=== PATIENT | female | born 1985 | race African-American/Black ===

== ENCOUNTER 2018-04-04 21:32 | Emergency (ER) | payer OTHER, BC ==
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
== END 2018-04-05 01:16 | disposition home or self-care (01) ==
LOC: JD.ED 21:32
DX: R19.7 Diarrhea, unspecified (principal)
CPT/HCPCS: 87046; 87425; 87427; 87493; 87798; 89055; 99284

== ENCOUNTER 2019-01-07 09:45 | Emergency (ER) | payer OTHER, BC ==
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
--- NOTE | 2019-01-07 10:52 | CT ---
CT cervical spine Technique: Multiple axial sections were obtained from above C1 inferiorly to the bottom of T1. Reconstructed sagittal and coronal images were reviewed. Findings: Extra bony density is seen off the inferior aspect of the anterior arch of C1 which appears old and is felt to be incidental. Minimal degenerative change is noted between the dens and anterior arch of C1. Vertebral body heights and disc spaces are maintained. Minimal calcification is noted anterior to the disc at C5-6 which is felt to represent slight soft tissue calcification which is incidental. Vertebral bodies and posterior arches are intact. No fracture is seen. No bony central lower bony neural foraminal stenosis is seen. No abnormal subluxation is seen on the reconstructed sagittal images. Impression: 1. Incidental findings. Nothing acute is seen on CT study of the cervical spine. Diagnostic code #2
--- NOTE | 2019-01-07 11:33 | CR ---
Right knee: AP, lateral and sunrise patellar views of the right knee were obtained. Comparison: No previous knee exam. Medial and lateral joint compartments are maintained in height. No joint effusion is seen. Patellofemoral joint appears within normal limits. No subluxation or fracture is seen. Impression: 1. No abnormality is seen on right knee exam. Diagnostic code #1
== END 2019-01-07 11:20 | disposition home or self-care (01) ==
LOC: SUPCPDRO 09:45 → JD.ED 09:45
DX: S13.9XXA Sprain of joints and ligaments of unspecified parts of neck, initial encounter (principal); S80.01XA Contusion of right knee, initial encounter; Z79.899 Other long term (current) drug therapy; V89.2XXA Person injured in unspecified motor-vehicle accident, traffic, initial encounter
CPT/HCPCS: 72125; 72125-26; 73562-26-RT; 73562-RT; 99283; 99284-25

== ENCOUNTER 2019-02-13 15:56 | Emergency (ER) | payer BC, OTHER ==
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
--- NOTE | 2019-02-13 17:46 | US ---
First trimester obstetrical ultrasound: Multiple real-time images were obtained transvaginally. Comparison: No prior study for current . Very minimal cystic area is noted within the endometrial cavity. This measures 3 mm. Incidental nabothian cysts are seen. Ovaries appear within normal limits. Small amount of free fluid is noted within the pelvis believed to be incidental. Impression: 1. Very minimal cystic area within the endometrial cavity. Uncertain if this represents pseudo-gestational sac or represents a very early gestational sac which is small to date. Recommend repeat study in 14 days to further evaluate. 2. Other incidental findings as noted above. Diagnostic code #2
== END 2019-02-13 19:07 | disposition home or self-care (01) ==
LOC: JD.ED 15:56 → SUPCPDRO 15:56 → JD.ED 19:07
DX: O20.0 Threatened abortion (principal); Z3A.01 Less than 8 weeks gestation of pregnancy; Z79.899 Other long term (current) drug therapy
CPT/HCPCS: 36415; 76817; 76817-26; 81001; 81025; 84702; 85007; 85027; 86850; 86900; 86901; 99284-25

== ENCOUNTER 2020-01-25 02:54 | Emergency (ER) | payer BC ==
--- NOTE | 2020-01-25 05:44 | EDM.PDOC ---
ED HPI GENERAL MEDICAL PROBLEM - General Chief Complaint: Respiratory Problem Stated Complaint: ATHSMA ATTACK Time Seen by Provider: 01/25/20 05:24 Source of Information: Reports: Patient History Limitations: Reports: No Limitations - History of Present Illness INITIAL COMMENTS - FREE TEXT/NARRATIVE: Mrs. Tyler is a very pleasant 34-year-old woman with no chronic medical issues, who states that she is been experiencing a hot sensation in her central chest for the past 3 days. She feels short of breath. No recent wheezing. She also states that her tongue has been tingling for the past 3 days, and when she walks , it feels like she is walking on rubber legs. No prior similar symptoms. No recent fever, nausea, vomiting, constipation, diarrhea, or urinary symptoms. The patient states that she has had abdominal pain on and off for years. The patient states that she may have had asthma as a child, but no formal diagnosis. The patient has been taking honey with lemon, winter, and Tylenol, which has not helped. Here in the ED, the patient is found to be mildly hypertensive at 158/97, otherwise, she is hemodynamically stable, afebrile, saturating 100% on room air. The patient does not have a PCP. Her Cable Splicer is Dr. Blayne Ferguson. She received an influenza vaccine this season. Chest Pain Score (Numeric/FACES): 8 - Related Data Allergies Allergy/AdvReac Type Severity Reaction Status Date / Time No Known Allergies Allergy Verified 01/25/20 03:11 Home Meds: Home Meds . 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 ED EXAM, GENERAL - Physical Exam Exam: See Below Exam Limited By: No Limitations General Appearance: Alert, WD/WN, Anxious Eye Exam: Bilateral Eye: EOMI, Normal Inspection Ears: Normal External Exam, Hearing Grossly Normal Nose: Normal Inspection Throat/Mouth: Normal Inspection, Normal Lips, Normal Voice, No Airway Compromise Head: Atraumatic, Normocephalic Neck: Normal Inspection, Full Range of Motion Respiratory/Chest: No Respiratory Distress, Lungs Clear, Normal Breath Sounds, No Accessory Muscle Use. No: Decreased Breath Sounds, Crackles, Rhonchi, Wheezing, Stridor, Prolonged Expiration Cardiovascular: Normal Peripheral Pulses, Regular Rate, Rhythm, No Edema, No Gallop, No JVD, No Murmur, No Rub Peripheral Pulses: 4+: Radial (L), Radial (R) GI/Abdominal: Normal Bowel Sounds, Soft, Non-Tender, No Organomegaly, No Distention, No Abnormal Bruit, No Mass (Female) Exam: Deferred Rectal (Female) Exam: Deferred Back Exam: Normal Inspection, Full Range of Motion, NT Extremities: Normal Inspection, Normal Range of Motion, No Pedal Edema, Normal Capillary Refill Neurological: Alert, Oriented, Normal Cognition, No Motor/Sensory Deficits Psychiatric: Anxious Skin Exam: Warm, Dry, Intact, Normal Color, No Rash Course - Vital Signs Last Recorded V/S: Last Vital Signs Temp 36.8 C 01/25/20 03:09 Pulse 86 01/25/20 03:09 Resp 16 01/25/20 03:09 BP 158/97 H 01/25/20 03:09 Pulse Ox 100 01/25/20 03:09 - Re-Assessments/Exams Free Text/Narrative Re-Assessment/Exam: 01/25/20 05:39 A chest x-ray was ordered by the patient's nurse: Two-view chest radiograph appears to be grossly normal. The cardiac silhouette is within normal limits. No pulmonary vascular congestion. No pleural effusions. No focal infiltrate. No pneumothorax. No hyperinflation. Formal read per the Radiologist pending. The patient was under the impression that she is suffering an asthma attack, however, there are no features of her current presentation that are consistent with an asthma attack. Her lungs are entirely clear to auscultation bilaterally , she has not been coughing, and her oxygen saturation is 100% on room air. Additionally, the patient's chest x-ray is completely normal, with no suggestion of hyperinflation, which one would expect with an asthma exacerbation. Further, she has been experiencing a hot sensation to her chest, her tongue has been tingling, and her lower extremities feel like she is walking on rubber legs. I suspect that the patient is suffering from hyperventilation syndrome due to anxiety. I am therefore recommending that she follow-up in the clinic to discuss treatment options for anxiety. The patient expressed understanding. Departure - Departure Time of Disposition: 05:41 Disposition: Home, Self-Care 01 Condition: Good Clinical Impression: Hyperventilation syndrome - Discharge Information *PRESCRIPTION DRUG MONITORING PROGRAM REVIEWED*: Not Applicable *COPY OF PRESCRIPTION DRUG MONITORING REPORT IN PATIENT CLEMENTE: Not Applicable Referrals: Jill Moody NP [Nurse Practitioner] - Forms: ED Department Discharge Additional Instructions: You were seen in the emergency room for 3 days of shortness of breath, a hot sensation in your chest, a tingling tongue, and weak legs. Work-up in the ER included a chest x-ray, which returned normal. You do not have pneumonia, and there is no hyperinflation to suggest an asthma exacerbation. Based on your history, physical exam, and ER chest x-ray, your symptoms are most likely due to hyperventilation syndrome, due to anxiety. We recommend that you follow-up with Jill Moody NP, or one of the other providers in the clinic, at the next available appointment, to discuss treatment options for anxiety. If any other problems, please do not hesitate to return to the ER. Sepsis Event Note - Evaluation Sepsis Screening Result: No Definite Risk - Focused Exam Date Exam was Performed: 01/28/20 Time Exam was Performed: 02:49
--- NOTE | 2020-01-25 07:13 | CR ---
Chest: Two views of the chest were obtained. Comparison: No prior chest imaging is available. Heart size and mediastinum are normal. Lungs are clear with no acute parenchymal change. Bony structures are unremarkable for the patient's age. Impression: 1. Nothing acute is appreciated on two-view chest x-ray. Diagnostic code #1 Study was dictated in MDT
== END 2020-01-25 05:40 | disposition home or self-care (01) ==
LOC: JD.ED 02:54
DX: F45.8 Other somatoform disorders (principal)
CPT/HCPCS: 71046; 71046-26; 99284-25

== ENCOUNTER 2022-03-13 17:28 | Day surgery (SDC) | payer BC ==
[2022-03-13] MEDS ORDERED: HYDROmorphone 1 MG/ML Syringe IVPUSH ONE (19:44)
[2022-03-13] MEDS ORDERED: Sodium Chloride 0.9% 10 ML Syringe FLUSH PRN (19:44)
[2022-03-13] MEDS ORDERED: Lactated Ringers 1,000 ML IV SCH (19:45)
[2022-03-13] MEDS ORDERED: fentaNYL 250 MCG/5 ML SDV ONE (21:00)
[2022-03-13] MEDS ORDERED: Propofol 200 MG/20 ML SDV ONE (21:00)
[2022-03-13] MEDS ORDERED: Midazolam 1 MG/ML 2 ML SDV ONE (21:00)
[2022-03-13] MEDS ORDERED: Lidocaine 1% 5 ML VIAL ONE (21:04)
[2022-03-13] MEDS ORDERED: Rocuronium 50 MG/5 ML Vial ONE (21:04)
[2022-03-13] MEDS ORDERED: Sugammadex Sodium 200 MG/2 ML VIAL ONE (21:34)
[2022-03-13] MEDS ORDERED: Ketorolac 30 MG/ML SDV ONE (21:35)
[2022-03-13] MEDS ORDERED: Ondansetron 4 MG/2 ML SDV ONE (21:35)
[2022-03-13] MEDS ORDERED: Dexamethasone 4 MG/ML 5 ML MDV ONE (21:39)
[2022-03-13] MEDS ORDERED: Ondansetron 4 MG/2 ML SDV IVPUSH PRN ×2 (21:58→22:00)
[2022-03-13] MEDS ORDERED: HYDROmorphone 0.5 MG/0.5 ML Syringe IVPUSH PRN (22:00)
[2022-03-13] MEDS ORDERED: fentaNYL 100 MCG/2 ML SDV IVPUSH PRN (22:00)
[2022-03-14] MEDS ORDERED: Ibuprofen 600 MG Tab PO PRN (03:30)
== END 2022-03-13 22:55 | disposition home or self-care (01) ==
LOC: JD.ED 17:28 → JD.SDS 20:18
PROVIDERS: ATTEND Obstetrics & Gynecology
DX: O03.4 Incomplete spontaneous abortion without complication (principal); J45.909 Unspecified asthma, uncomplicated; N96 Recurrent pregnancy loss; Z98.891 History of uterine scar from previous surgery
CPT/HCPCS: 36415; 59812; 76801; 80053; 84702; 85025; 86900; 86901; 96374; 99285; J1100; J1170; J1885; J2250; J2370; J2405; J2704; J3010; J3490; J7120; 01965; 99140; 99284

== ENCOUNTER 2025-02-22 06:13 | Inpatient (IN) | payer BC ==
[2025-02-22] MEDS ORDERED: Ondansetron 4 MG/2 ML SDV IVPUSH PRN (08:47)
[2025-02-22] MEDS ORDERED: Lidocaine 1% 50 ML MDV INJECT PRN (08:47)
[2025-02-22] MEDS ORDERED: Sodium Chloride 0.9% 10 ML Syringe FLUSH PRN (08:47)
[2025-02-22] MEDS ORDERED: Oxytocin/0.9 % Sodium Chloride 30 UNIT/500 ML BAG IV SCH (09:00)
[2025-02-22] MEDS: Sodium Chloride 0.9% 10 ML Syringe FLUSH SCH (09:16)
[2025-02-22] MEDS: Lactated Ringers 1,000 ML IV SCH (09:18)
[2025-02-22] MEDS: Oxytocin/0.9 % Sodium Chloride 30 UNIT/500 ML BAG IV SCH (09:18)
[2025-02-22 09:40] LABS: BASOPHILS PERCENT AUTO 0.1 % (0.0-1.0); EOSINOPHILS ABSOLUTE AUTO 0.2 K/mm3 (0.0-0.4); EOSINOPHILS PERCENT AUTO 2.9 % (0.0-6.0); HEMATOCRIT 38.8 % (37.0-47.0); HEMOGLOBIN 12.3 gm/dl (12.0-16.0); IMMATURE GRAN ABSOLUTE AUTO 0.03 K/mm3 (0.00-0.05); IMMATURE GRAN PERCENT AUTO 0.4 % (0.0-0.4); LYMPHOCYTES ABSOLUTE AUTO 1.8 K/mm3 (1.0-4.8); LYMPHOCYTES PERCENT AUTO 25.9 % (24.0-44.0); MEAN CORPUSCULAR HEMOGLOBIN 23.7 pg (28.0-32.0); MEAN CORPUSCULAR HGB CONC 31.7 g/dl (32.0-36.0); MEAN CORPUSCULAR VOLUME 74.8 fl (83.0-99.0); MONOCYTES ABSOLUTE AUTO 0.6 K/mm3 (0.0-0.8); MONOCYTES PERCENT AUTO 7.9 % (0.0-8.0); NEUTROPHILS ABSOLUTE AUTO 4.4 K/mm3 (1.8-7.7); NEUTROPHILS PERCENT AUTO 62.8 % (41.0-71.0); RED BLOOD CELL COUNT 5.19 M/mm3 (4.10-5.30); WHITE BLOOD CELL COUNT,WBC 6.94 K/mm3 (3.9-11.3)
[2025-02-22 09:41] LABS: PLATELET COUNT,PLT 261 K/mm3 (150-400)
[2025-02-22 09:58] LABS: A/G RATIO 0.6 (1-2); ALBUMIN 2.4 g/dl (3.4-5.0); ANION GAP 14.8 (5-15); BILIRUBIN TOTAL 0.2 mg/dL (0.2-1.0); BUN/CREATININE RATIO 11.7 (14-18); CALCIUM 9.1 mg/dL (8.5-10.1); CREATININE 0.6 mg/dL (0.55-1.02); EST CRCL DRUG DOSING (CG) 106.55 mL/min; POTASSIUM,K 3.8 mEq/L (3.5-5.1); PROTEIN TOTAL,TP 6.4 g/dl (6.4-8.2)
[2025-02-22 10:04] LABS: SLIDE REVIEW ABNORMAL SMEAR
[2025-02-22 12:10] LABS: PROTEIN CREATININE RATIO,URINE 90.9 mg/g (0-149)
[2025-02-22] MEDS: Nalbuphine 10 MG/1 ML Vial IVPUSH PRN (18:07)
[2025-02-22] MEDS ORDERED: ePHEDrine 50 MG/ML SDV IVPUSH PRN (19:01)
[2025-02-22] MEDS: fentaNYL 100 MCG/2 ML SDV EPIDUR PRN (19:17)
[2025-02-22] MEDS: Bupivacaine/fentaNYL/NS 100 ML Bag EPIDUR PRN (19:18)
[2025-02-23] MEDS: diphenhydrAMINE 50 MG/ML SDV IVPUSH PRN (00:41)
[2025-02-23] MEDS: Lactated Ringers 500 ML IRR ONE (03:05)
[2025-02-23] MEDS ORDERED: Phenylephrine 1% 10 MG/ML SDV ONE (07:00)
[2025-02-23] MEDS ORDERED: ePHEDrine 50 MG/ML SDV ONE (07:00)
[2025-02-23] MEDS ORDERED: Witch Hazel Medicated Pads 40/Jar TOP PRN (08:19)
[2025-02-23] MEDS ORDERED: Benzocaine/Menthol 20%-0.5% Spray 78 GM Cannister TOP PRN (08:19)
[2025-02-23] MEDS: Magnesium Sulf/Wat 4 GM/50 mL 4 GM in Premix Bag 1 BAG IV ONE (08:41)
[2025-02-23] MEDS: Labetalol 100 MG/20 ML MDV IVPUSH ONE (08:42)
[2025-02-23] MEDS: Lactated Ringers 1,000 ML IV SCH (08:45)
[2025-02-23] MEDS: Ibuprofen 600 MG Tab PO SCH (08:50)
[2025-02-23] MEDS: Magnesium Sulf/Wat 40GM/1000mL 40 GM/1,000 ML BAG IV SCH (09:15)
[2025-02-23] MEDS: Lactated Ringers 1,500 ML IRR ONE (09:16)
[2025-02-23] MEDS: fentaNYL 100 MCG/2 ML SDV IVPUSH ONE (09:40)
[2025-02-23] MEDS: Acetaminophen 325 MG Tab PO PRN (11:59)
[2025-02-23] MEDS: Docusate Sodium 100 MG Cap PO PRN (21:41)
[2025-02-23] MEDS: Simethicone 80 MG Tab.Chew PO PRN (21:47)
== END 2025-02-25 10:55 | disposition home or self-care (01) | DRG 560 ==
LOC: JD.OB 06:13 → OBSVTOIN 02-23 06:13 → JD.OB 02-23 06:14 → OBSVTOIN 02-23 06:47 → INTOOBSV 02-23 06:47
PROVIDERS: ADMIT Family Medicine; ATTEND Family Medicine
PROC: 10907ZC Drainage of Amniotic Fluid, Therapeutic from Products of Conception, Via Natural or Artificial Opening (ICD-10-PCS; principal; 2025-02-23)
PROC: 10H07YZ Insertion of Other Device into Products of Conception, Via Natural or Artificial Opening (ICD-10-PCS; principal; 2025-02-23)
PROC: 3E0R3BZ Introduction of Anesthetic Agent into Spinal Canal, Percutaneous Approach (ICD-10-PCS; principal; 2025-02-23)
PROC: 10E0XZZ Delivery of Products of Conception, External Approach (ICD-10-PCS; principal; 2025-02-23)
DX: O13.4 Gestational [pregnancy-induced] hypertension without significant proteinuria, complicating childbirth (principal); O34.211 Maternal care for low transverse scar from previous cesarean delivery; O99.344 Other mental disorders complicating childbirth; O99.02 Anemia complicating childbirth; Z3A.39 39 weeks gestation of pregnancy; Z37.0 Single live birth; Z79.899 Other long term (current) drug therapy; Z90.49 Acquired absence of other specified parts of digestive tract
CPT/HCPCS: 36415; 51701; 51702; 51798; 59025; 59409; 80053; 82570; 84156; 85025; 86592; 86850; 86900; 86901; A9270-GY; C1726; C1758; J1200; J1920; J2300; J2371; J3010; J3475; J3490; J7120; J7999